=== PATIENT | female | born 1985 | race Asian ===

== ENCOUNTER 2022-05-30 18:25 | Emergency (ER) | payer OTHER ==
[2022-05-30 18:36] VITALS: BP 137/98
--- NOTE | 2022-05-30 19:18 | ED Physician Documentation ---
PD HPI MHE - Stated complaint Stated Complaint: MHE - Chief complaint Chief Complaint: MHE - History obtained from History obtained from: Patient, Family - History of Present Illness Pain level max: 0 Pain level now: 0 - Additional information Additional information: Patient is a 36-year-old female brought into the emergency department with her today. She states that they are here for "marital counseling". She states that they have been under increasing stress lately and have been arguing more than usual. They came here to "talk to someone". The states that she has become increasingly paranoid and thinks that the neighbors are out to get her. She believes that when they lived in [place] a neighbor was faking COVID so they did not have to talk to her. He also states that for many years she has believed that she has superpowers and can control the weather with her emotions. She is not suicidal or homicidal. She is not currently seeing a psychiatrist or therapist. Nothing seems to make this better or worse. She does not want to go to inpatient psychiatry. She has not made any threats against herself or others. Review of Systems Ten Systems: 10 systems reviewed and negative Constitutional: denies: Fever, Chills Nose: denies: Rhinorrhea / runny nose, Congestion Respiratory: denies: Cough GI: denies: Nausea, Vomiting, Diarrhea Skin: denies: Rash Musculoskeletal: denies: Neck pain, Back pain Neurologic: denies: Headache PD PAST MEDICAL HISTORY - Past Medical History Past Medical History: Yes - Allergies Allergies/Adverse Reactions: Allergies Allergy/AdvReac Type Severity Reaction Status Date / Time No Known Drug Allergies Allergy Verified 05/30/22 18:36 - Social History Does the pt smoke?: No Smoking Status: Never smoker PD ED PE NORMAL - Vitals Vital signs reviewed: Yes - General General: Alert and oriented X 3, No acute distress - HEENT HEENT: Moist mucous membranes - Neck Neck: Supple, no meningeal sign - Respiratory Respiratory: No respiratory distress - Derm Derm: Warm and dry - Extremities Extremities: Normal ROM s pain - Neuro Neuro: Alert and oriented X 3 - Psych Psych: Normal mood, Normal affect Results - Vitals Vitals: Vital Signs - 24 hr 05/30/22 05/30/22 18:28 18:36 Temperature 36.5 C 36.5 C Heart Rate 93 93 Respiratory 16 16 Rate Blood Pressure 137/98 H 137/98 H O2 Saturation 100 100 Oxygen O2 Source Room air PD MEDICAL DECISION MAKING - ED course Complexity details: considered differential, d/w patient, d/w family ED course: Patient is a 36-year-old female with what sounds like longstanding mental health issues. She does appear to have longstanding paranoia and some level of delusion. She is not acutely psychotic. Not having active auditory or visual hallucinations. Not responding to internal stimuli. She is not homicidal or suicidal. Not gravely disabled. Does not appear to have any criteria for involuntary hold at this time. Patient decided she did not want to stay in the emergency department any longer and demanded to leave. was given counseling resources, DCR information and fleet and family information. Recommend that if he feels that she is unsafe at home or is becoming acutely psychotic that he contact the DCR for home evaluation. This document was made in part using voice recognition software. While efforts are made to proofread this document, sound alike and grammatical errors may occur. Departure - Departure Disposition: 01 Home, Self Care Clinical Impression: Mental health-related complaint Condition: Good Instructions: ED Stress React, ED Depression Follow-Up: [facility] [Provider Group] Comments: You have been given a list of counselors tonfito. Please make an appointment with one of them. The crisis line information is below as well. Crisis Line and is available to talk to someone [email or web address] is also available to chat with someone online if you prefer. There are also many resources on this website and apps for your phone to help with your mental health You can also text the word START to [phone] to chat with someome via text. We also discussed the DCR and if you need help at home, you can have them dispatched to come to your home as well. The number is and r equest a DCR to your location. Discharge Date/Time: 05/30/22 19:26
== END 2022-05-30 19:26 | disposition home or self-care (01) ==
LOC: ED 18:25
DX: Z76.89 Persons encountering health services in other specified circumstances (principal)
CPT/HCPCS: 99281; 99283